=== PATIENT | female | born 1980 | race Caucasian/White ===

== ENCOUNTER 2017-10-10 08:12 | Emergency (ER) | payer MEDICAID ==
[~2017-10-10] VITALS: Ht 154.9 cm; Wt 69.0 kg
[2017-10-10 08:30] VITALS: BP 131/80
[2017-10-10] MEDS ORDERED: CYCLOBENZAPRINE 10 MG TABLET ONE (08:57)
[2017-10-10] MEDS ORDERED: KETOROLAC 30 MG/1 ML ONE (08:57)
[2017-10-10] MEDS ORDERED: CYCLOBENZAPRINE 10 MG TABLET PO SCH (09:00)
[2017-10-10] MEDS ORDERED: KETOROLAC 30 MG/1 ML IM ONE (09:00)
== END 2017-10-10 09:56 | disposition home or self-care (01) ==
LOC: ED 08:30
DX: M26.623 Arthralgia of bilateral temporomandibular joint (principal)
CPT/HCPCS: 93005; 96372; 99283; J1885

== ENCOUNTER 2017-11-16 15:25 | Emergency (ER) | payer MEDICAID ==
[~2017-11-16] VITALS: Ht 154.9 cm; Wt 67.0 kg
[2017-11-16 15:33] VITALS: BP 111/59
== END 2017-11-16 16:12 | disposition home or self-care (01) ==
LOC: ED 15:55
DX: M26.623 Arthralgia of bilateral temporomandibular joint (principal)
CPT/HCPCS: 99283

== ENCOUNTER 2018-02-01 15:26 | Emergency (ER) | payer MEDICAID ==
[~2018-02-01] VITALS: Ht 157.5 cm; Wt 68.4 kg
[2018-02-01 15:50] VITALS: BP 113/80
[2018-02-01] MEDS ORDERED: DIPH,PERTUSS(ACELL),TET VAC/PF 0.5 ML IM-VACC ONE ×2 (15:57→16:00)
[2018-02-01] MEDS ORDERED: KETOROLAC 30 MG/1 ML ONE (16:21)
[2018-02-01] MEDS ORDERED: METHOCARBAMOL 750 MG TABLET ONE (16:21)
[2018-02-01] MEDS ORDERED: KETOROLAC 30 MG/1 ML IVPush ONE (16:30)
[2018-02-01] MEDS ORDERED: METHOCARBAMOL 750 MG TABLET PO ONE (16:30)
== END 2018-02-01 17:24 | disposition home or self-care (01) ==
LOC: ED 15:56
DX: S61.512A Laceration without foreign body of left wrist, initial encounter (principal); S16.1XXA Strain of muscle, fascia and tendon at neck level, initial encounter; Z87.891 Personal history of nicotine dependence; W25.XXXA Contact with sharp glass, initial encounter; Y93.89 Activity, other specified; Y92.89 Other specified places as the place of occurrence of the external cause; Y99.8 Other external cause status
CPT/HCPCS: 12002; 90471; 90715; 96374; 99284; J1885

== ENCOUNTER 2018-11-01 09:55 | Emergency (ER) | payer MEDICAID ==
[~2018-11-01] VITALS: Ht 154.9 cm; Wt 76.0 kg
[2018-11-01 09:58] VITALS: BP 92/65
== END 2018-11-01 11:10 | disposition home or self-care (01) ==
LOC: ED 10:54
DX: F41.1 Generalized anxiety disorder (principal); Z76.0 Encounter for issue of repeat prescription
CPT/HCPCS: 99283